=== PATIENT | female | born 1990 | race Two or more races ===

== ENCOUNTER 2016-08-09 12:37 | Emergency (ER) | payer MEDICAID ==
[2016-08-09 12:47] VITALS: BP 142/89; PULSE 70; RESP 22; TEMP 98.6; O2SAT 99
== END 2016-08-09 15:24 | disposition left against medical advice (07) ==
DX: Z53.21 Procedure and treatment not carried out due to patient leaving prior to being seen by health care provider (principal)

== ENCOUNTER 2016-08-09 13:56 | Emergency (ER) | payer MEDICAID ==
--- NOTE | 2016-08-09 14:31 | DX ---
PA and lateral chest History: Severe cramping for 2 days. Comparison: None available. Findings: The lungs are clear. There is no pneumothorax or pleural effusion. The heart and pulmona ry vasculature are normal. S-shaped scoliosis of the spine is noted. Impression: No acute findings in the chest.
[2016-08-09 14:51] VITALS: TEMP 98.1
--- NOTE | 2016-08-09 16:03 | US ---
Transabdominal and Transvaginal Pelvic Ultrasound History: 25-year-old with severe cramping, evaluate IUD placement, LMP August 07, 2016. Comparison: None available. Findings: Transabdominal: The uterus measures 8.1 x 5.2 x 5.4 cm. An IUD is noted in the uterus. The bladder i s normal. Transvaginal: The endometrium is partially obscured by an IUD, which is in good position. The visible endometrium is homogeneous and measures 9 mm. The left ovary measures 1.7 x 2.4 x 2.5 cm. The right ovary measures 2.1 x 1.1 x 2.4 cm. No adnexal masses are identified. Normal arterial blood flow is d ocumented to both ovaries by Doppler ultrasound. Impression: 1. Normal pelvic ultrasound. 2. IUD in good position. Findings discussed with Patel Carter today at 1600 hours.
--- NOTE | 2016-08-09 16:10 | UCPHY ---
H & P Patient Type: New Chief Complaint Nursing Narrative: Months of cramps . and now sever pain for the last week. Has had an IUD in for the last 8 months. Denies fever chills. Using Tylenol and had 1000mg this am. Time Seen by Provider: 08/09/16 15:36 HPI/ROS: CHIEF COMPLAINT: Pelvic cramping HISTORY OF PRESENT ILLNESS: The patient is a 25-year-old female who comes to the Urgent Care complaining of pelvic cramping associated with her menses. She states that this is the most painful menses she has ever had. She was concerned that maybe her IUD had fallen out of place. It was placed 8 months ago. Her bleeding is not heavier than usual. She does not have any discharge or fevers. No urinary symptoms. No GI symptoms. She denies risk of . No new sexual practices. She tried calling her doctor could not see her today. She then went to an urgent care who referred her to an ER because a did not have ultrasound. At the ER she was told it was a 5 hour wait so she decided to come here. REVIEW OF SYSTEMS: Constitutional: denies: chills, fever, recent illness, recent injury EENTM: denies: blurred vision, double vision, nose congestion Respiratory: denies: cough, shortness of breath Cardiac: denies: chest pain, irregular heart rate, lightheadedness, palpitations Gastrointestinal/Abdominal: denies: abdominal pain, diarrhea, nausea, vomiting, blood streaked stools Genitourinary see HPI Musculoskeletal: denies: joint pain, muscle pain Skin: denies: lesions, rash, jaundice, bruising Neurological: denies: headache, numbness, paresthesia, tingling, dizziness, weakness Hematologic/Lymphatic: denies: blood clots, easy bleeding, easy bruising Immunologic/allergic: denies: HIV/AIDS, transplant EXAM: GENERAL: Well-appearing, well-nourished and in no acute distress. HEAD: Atraumatic, normocephalic. EYES: Pupils equal round and reactive to light, extraocular movements intact, sclera anicteric, conjunctiva are normal. ENT: TMs normal, nares patent, oropharynx clear without exudates. Moist mucous membranes. NECK: Normal range of motion, supple without lymphadenopathy or JVD. LUNGS: Breath sounds clear to auscultation bilaterally and equal. No wheezes rales or rhonchi. HEART: Regular rate and rhythm without murmurs, rubs or gallops. ABDOMEN: Soft, nontender, normoactive bowel sounds. No guarding, no rebound. No masses appreciated. : Declined BACK: No CVA tenderness, no spinal tenderness, step-offs or deformities EXTREMITIES: Normal range of motion, no pitting or edema. No clubbing or cyanosis. NEUROLOGICAL: Cranial nerves II through XII grossly intact. Normal speech, normal gait. 5/5 strength, normal movement in all extremities, normal sensation PSYCH: Normal mood, normal affect. SKIN: Warm, dry, normal turgor, no visible rashes or lesions. Source: Patient Exam Limitations: No limitations - Personal History LMP (Females 10-55): 1-7 Days Ago - Medical/Surgical History Hx Asthma: No Hx Chronic Respiratory Disease: No Hx Diabetes: No Hx Cardiac Disease: No Hx Renal Disease: No Hx Cirrhosis: No Hx Alcoholism: No Hx HIV/AIDS: No Hx Splenectomy or Spleen Trauma: No Other PMH: [facility] . Tetanus UTD. Flu vaccination NONE. Denies med surg history . - Family History Significant Family History: No pertinent family hx - Social History Smoking Status: Never smoked Alcohol Use: None Drug Use: None Constitutional: Initial Vital Signs Temperature (C) 36.7 C 08/09/16 14:46 Heart Rate 70 08/09/16 14:46 Respiratory Rate 15 08/09/16 14:46 Blood Pressure 132/79 H 08/09/16 14:46 O2 Sat (%) 100 08/09/16 14:46 O2 Delivery Mode Room Air Allergies/Adverse Reactions: No Known Allergies Allergy (Verified 08/09/16 14:51) Home Medications: Medication Instructions Recorded oxyCODONE/APAP 5/325 [Percocet 1 - 2 tab PO Q4H PRN #20 tab 08/09/16 5/325 (*)] Medical Decision Making - Diagnostics Imaging: Study: Ultrasound of the: Pelvis Indication: Vaginal bleeding Results: US scan of the pelvis was obtained. The results of the study are IUD in place, significant abnormality seen.. The study was read by the radiologist , Dr. Elliott Perea. I viewed the images myself on the PACS system. ED Course/Re-evaluation: We discussed the patient's ultrasound results. She is relieved. She declines pelvic examination. She states that she is not at risk for STD. Her bleeding she describes as mild. She does not wish to have her IUD removed. She would like to have pain medication to try and control her symptoms and will follow up with her OBGYN. Otherwise she declines further workup or testing. We discussed treatment plan and indications for returning. Additional verbal discharge instructions given. Differential Diagnosis: Partial list of the Differential diagnosis considered include but were not limited to; dysmenorrhea, , ovarian cyst, edema is placement and although unlikely based on the history and physical exam, I also considered PID , ectopic, appendicitis, urinary tract infection. I discussed these differential diagnoses and the plan with the patient as well as the usual and expected course. The patient understands that the diagnosis is provisional and that in medicine we are not always correct and that further workup is often warranted. Usual and customary warnings were given. All of the patient's questions were answered. The patient was instructed to return to the emergency department should the symptoms at all worsen or return, otherwise to followup with the physician as we discussed. - Data Points Medications Given: Discontinued Medications Oxycodone/Acetaminophen (Percocet 5/325) 1 tab PO EDNOW ONE Stop: 08/09/16 16:34 Last Admin: 08/09/16 16:39 Dose: 1 tab Departure - Departure Disposition: Home, Routine, Self-Care Clinical Impression: Dysmenorrhea Condition: Fair Instructions: Dysmenorrhea (ED) Additional Instructions: Continue taking ibuprofen as well and follow up with the OBGYN as we discussed. Return if her symptoms worsen or if you began bleeding heavily. Referrals: NONE *PRIMARY CARE P,. [Primary Care Provider] - As per Instructions Jasmin Youssef DO [Doctor of Osteopathy] - As per Instructions Prescriptions: oxyCODONE/APAP 5/325 [Percocet 5/325 (*)] 1 - 2 tab PO Q4H PRN #20 tab PRN Reason: Pain, Severe - PQRS PQRS Measurement: Not applicable
[2016-08-09] MEDS ORDERED: OXYCODONE/APAP 5/325 TAB PO ONE (16:33)
[2016-08-09 23:53] VITALS: BP 134/93; PULSE 75; RESP 16; O2SAT 98
== END 2016-08-09 16:39 | disposition home or self-care (01) ==
LOC: CED 13:56
DX: N94.6 Dysmenorrhea, unspecified (principal)
CPT/HCPCS: 71020-PO; 76856-PO; 99204-PO; G0463-PO